=== PATIENT | male | born 1980 | race African-American/Black ===

== ENCOUNTER 2016-09-11 10:51 | Inpatient (IN) | payer OTHER ==
[2016-09-11 11:42] VITALS: BMI 24.0
--- NOTE | 2016-09-11 13:32 | HP ---
CIWA Score - CIWA Score Nausea/Vomitin Muscle Tremors: 3 Anxiety: 3 Agitation: 2 Paroxysmal Sweats: 1-Minimal Palms Moist Orientation: 0-Oriented Tacttile Disturbances: 2-Mild Itch/Numbness/Burn Auditory Disturbances: 2-Mild Harshness/Frighten Visual Disturbances: 2-Mild Sensitivity Headache: 2-Mild CIWA-Ar Total Score: 20 Admission ROS BHS - HPI Chief Complaint: i need help to stop drinking alcohol Allergies/Adverse Reactions: Allergies Allergy/AdvReac Type Severity Reaction Status Date / Time Sulfa (Sulfonamide Allergy Intermediate Verified 07/11/15 14:37 Antibiotics) sulfamethoxazole Allergy Intermediate Verified 07/11/15 14:37 [From Bactrim] trimethoprim [From Bactrim] Allergy Verified 07/11/15 14:34 aspirin AdvReac Verified 09/11/16 13:36 red wine, G6PD deficient AdvReac Uncoded 02/03/15 19:06 History of Present Illness: this 36 years old male with alcohol dependence,withdrawal symptom,last rehab 06/14 to 07/30/15 several admissions in detox.last 2014 psoriasis longest period of sobriety 2 years Exam Limitations: No Limitations - Ebola screening Have you traveled outside of the country in the last 21 days: No Have you had contact with anyone from an Ebola affected area: No Have you been sick,other than usual withdrawal symptoms: No Do you have a fever: No - Review of Systems Constitutional: Loss of Appetite, Malaise, Night Sweats, Changes in sleep, Weakness EENT: reports: Nose Congestion Respiratory: reports: No Symptoms reported Cardiac: reports: No Symptoms Reported GI: reports: Diarrhea, Vomiting, Abdominal cramping : reports: No Symptoms Reported Musculoskeletal: reports: Muscle Pain Integumentary: reports: Dryness Neuro: reports: Headache, Tremors Endocrine: reports: No Symptoms Reported Hematology: reports: No Symptoms Reported, Other (g6pd deficiency) Psychiatric: reports: Judgement Intact, Mood/Affect Appropiate, Orientated x3 ( paranoid chizophrenia,ptsd) Patient History - Patient Medical History Hx Anemia: Yes (G6P defficiency) Hx Asthma: No Hx Chronic Obstructive Pulmonary Disease (COPD): No Hx Cancer: No Hx Cardiac Disorders: No Hx Congestive Heart Failure: No Hx Hypertension: No Hx Hypercholesterolemia: No Hx Pacemaker: No HX Cerebrovascular Accident: No Hx Seizures: No Hx Dementia: No Hx Diabetes: No Hx Gastrointestinal Disorders: No Hx Liver Disease: No Hx Genitourinary Disorders: No Hx Sexually Transmitted Disorders: No Hx Renal Disease (ESRD): No Hx Thyroid Disease: No Hx Human Immunodeficiency Virus (HIV): No (NEGATIVE HX last 07/16) Hx Hepatitis C: No Hx Depression: Yes Hx Suicide Attempt: No Hx Bipolar Disorder: No Hx Schizophrenia: Yes Other Medical History: no suicidal,no homicidal - Patient Surgical History Past Surgical History: Yes Hx Neurologic Surgery: No Hx Cataract Extraction: No Hx Cardiac Surgery: No Hx Lung Surgery: No Hx Breast Surgery: No Hx Breast Biopsy: No Hx Abdominal Surgery: No Hx Appendectomy: No Hx Cholecystectomy: No Hx Genitourinary Surgery: No Hx Section: No Hx Orthopedic Surgery: No Other Surgical History: rectal abscess incised and drained Anesthesia Reaction: No - PPD History Previous Implant?: Yes Documented Results: Negative w/o proof Date: 07/13/15 Results: 0 mm PPD to be Administered?: Yes - Smoking Cessation Smoking history: Never smoked Have you smoked in the past 12 months: No Hx Chewing Tobacco Use: No - Substance & Tx. History Hx Alcohol Use: Yes Hx Substance Use: No Substance Use Type: Alcohol Hx Substance Use Treatment: Yes (2014 ) - Substances Abused Alcohol Route: Oral Frequency: Daily Amount used: 1/2 pint vodka/ 2 12 oz beers Age of first use: 21 Date of Last Use: 09/10/16 Marijuana/Hashish Route: Smoking Frequency: Daily Amount used: $10 Age of first use: 17 Date of Last Use: 09/10/16 Family Disease History - Family Disease History Family Disease History: Other: Father (chronic alcoholic), Mother (HTN) Admission Physical Exam BHS - Vital Signs Vital Signs: Vital Signs - 24 hr 09/11/16 11:41 Temperature 97.2 F L Pulse Rate 59 L Respiratory 18 Rate Blood Pressure 134/76 - Physical General Appearance: Yes: Moderate Distress, Tremorous, Irritable, Sweating, Anxious HEENTM: Yes: Hearing grossly Normal, Normal ENT Inspection, KHALIF, Nasal Congestion Respiratory: Yes: Lungs Clear, Normal Breath Sounds, No Respiratory Distress Neck: Yes: Within Normal Limits, Supple, Trachea in good position Breast: Yes: Within Normal Limits Cardiology: Yes: Within Normal Limits, Regular Rhythm, Regular Rate, S1, S2 Abdominal: Yes: Within Normal Limits, Normal Bowel Sounds, Non Tender, Flat, Soft Genitourinary: Yes: Within Normal Limits Back: Yes: Within Normal Limits, Normal Inspection, Muscle Spasm Musculoskeletal: Yes: full range of Motion, Back pain, Muscle Pain Extremities: Yes: Within Normal Limits, Normal Range of Motion, Non-Tender, Tremors Neurological: Yes: Within Normal Limits, gravity 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 supervisor II-XII NML intact, Fully Oriented, Alert, Motor Strength 5/5 Integumentary: Yes: Dry Lymphatic: Yes: Within Normal Limits - Diagnostic (1) Psoriasis Status: Chronic (2) Schizophrenia Status: Chronic Qualifiers: Schizophrenia type: paranoid schizophrenia Qualified Code(s): F20.0 - Paranoid schizophrenia (3) Alcohol dependence with uncomplicated withdrawal Status: Acute (4) Marijuana dependence Status: Acute (5) G6PD deficiency Status: Chronic (6) Syncope Status: Acute (7) Post traumatic stress disorder (PTSD) Status: Acute Cleared for Admission [facility] - Detox or Rehab [facility] Level of Care: Medically Managed Detox Regimen/Protocol: Librium [facility] Breath Alcohol Content Breath Alcohol Content: 0 Urine Drug Screen - Results Drug Screen Negative: No Urine Drug Screen Results: THC-Marijuana
[2016-09-11] MEDS ORDERED: MAGNESIUM HYDROX 2400MG/30ML ORAL SUSPENSION 30 ML CUP PO PRN (13:48)
[2016-09-11] MEDS ORDERED: ACETAMINOPHEN 325 MG TABLET (FP) PO PRN (13:48)
[2016-09-11] MEDS ORDERED: chlordiazePOXIDE HCL 25 MG CAPSULE PO PRN (13:48)
[2016-09-11] MEDS ORDERED: MAG HYDROX/AL HYDROX/SIMETH 30 ML UNIT-DOSE CUP PO PRN (13:48)
[2016-09-11] MEDS ORDERED: LOPERAMIDE HCL 2 MG CAPSULE PO PRN (13:48)
[2016-09-11] MEDS ORDERED: P-EPHED 60MG/TRIPROLIDI 2.5MG TABLET PO PRN (13:48)
[2016-09-11] MEDS ORDERED: MAGNESIUM CITRATE 300 ML BOTTLE PO PRN (13:48)
[2016-09-11] MEDS ORDERED: IBUPROFEN 400 MG TABLET (FP) PO PRN (13:48)
[2016-09-11] MEDS ORDERED: diphenhydrAMINE HCL 50 MG CAPSULE PO PRN (13:48)
[2016-09-11] MEDS ORDERED: guaiFENesin/D-METHORPHAN HB 10 ML UNIT-DOSE CUPS PO PRN (13:48)
[2016-09-11] MEDS ORDERED: hydrOXYzine PAMOATE 50 MG CAPSULE (FP) PO PRN (13:56)
[2016-09-11] MEDS ORDERED: chlordiazePOXIDE HCL 25 MG CAPSULE PO ONE (14:33)
--- NOTE | 2016-09-11 15:58 | CONSULT ---
[facility] Psychiatric Consult - Data Date of interview: 09/11/16 Admission source: [facility] Identifying data: Readmission to [facility] for this 36 y/o AA male seeking detox treatment for alcohol and marijuana dependence.Patient is single,a father of one,domiciled,unemployed and supported on SSI benefits. Substance Abuse History: - Smoking Cessation. Smoking history: Never smoked. Have you smoked in the past 12 months: No. Hx Chewing Tobacco Use: No. - Substance & Tx. History. Hx Alcohol Use: Yes. Hx Substance Use: No. Substance Use Type: Alcohol. Hx Substance Use Treatment: Yes (2014 ) Medical History: Anemia (G6PD deficiency) and psoriasis. Psychiatric History: No history of psychiatric hospitalizations.Diagnosed with Schizophrenia,paranoid type and PTSD.Onset of mental illness dates back to adolescence.Treatment is sporadic due to chronic non-adherence to OPD care.Prescribed risperdal 1 mg/hs + benadryl 50 mg/hs as per self-report.Mr Stack indicates that he has an appointment for intake (October) at one of the [facility] clinics " in the [facility] ".For the past few years,the patient had developed a preference for emergency room settings that he uses as an alternate source of scripts.No reported history of suicide attempts. Physical/Sexual Abuse/Trauma History: Patient denies. Additional Comment: Urine Drug Screen Results: THC-Marijuana.Noted. Mental Status Exam - Mental Status Exam Alert and Oriented to: Time, Place, Person Cognitive Function: Good Patient Appearance: Well Groomed (tattoos on neck) Mood: Hopeful, Euthymic Affect: Appropriate, Normal Range Patient Behavior: Fatigued, Appropriate, Cooperative Speech Pattern: Clear Voice Loudness: Normal Thought Process: Goal Oriented Thought Disorder: Not Present Hallucinations: Denies Suicidal Ideation: Denies Homicidal Ideation: Denies Insight/Judgement: Poor (limited) Sleep: Fair Appetite: Good Muscle strength/Tone: Normal Gait/Station: Normal Psychiatric Findings - Problem List ([place] 1, 2,3) (1) Alcohol dependence with uncomplicated withdrawal Current Visit: Yes Status: Acute (2) Marijuana dependence Current Visit: Yes Status: Acute (3) Schizophrenia Current Visit: Yes Status: Chronic Qualifiers: Schizophrenia type: paranoid schizophrenia Qualified Code(s): F20.0 - Paranoid schizophrenia (4) G6PD deficiency Current Visit: Yes Status: Chronic (5) Psoriasis Current Visit: Yes Status: Chronic (6) Onychomycosis Current Visit: Yes Status: Chronic - Initial Treatment Plan Initial Treatment Plan: Psychoeducation.Detoxification in progress.Medications : risperdal 1 mg po hs + benadryl 50 mg po hs.Side effects/benefits discussed with the patient.Made aware of the risk of abnormal involuntary movements,EPS ( akathisia,dystonias,dyskinesias),neurolepic malignant syndrome,endocrine issues (galactorrhea,gynecomastia,decrease libido,sexual impotence) that can occur with utilization of risperdal.Patient reports good tolerability to these two drugs and he agrees to follow this careplan.Observation.
[2016-09-11] MEDS: chlordiazePOXIDE HCL 25 MG CAPSULE PO SCH ×2 (17:50→22:46)
[2016-09-11 18:36] LABS: URINE APPEARANCE CLEAR; URINE BILIRUBIN NEGATIVE (NEGATIVE); URINE BLOOD NEGATIVE (NEGATIVE); URINE COLOR STRAW; URINE GLUCOSE (UA) NEGATIVE (NEGATIVE); URINE KETONE NEGATIVE (NEGATIVE); URINE LEUK ESTERASE NEGATIVE (NEGATIVE); URINE NITRITE NEGATIVE (NEGATIVE); URINE PROTEIN NEGATIVE (NEGATIVE); URINE UROBILINOGEN NEGATIVE E.U./dl (0.2-1.0)
[2016-09-11] MEDS: THIAMINE HCL 100 MG TABLET (FP) PO SCH (22:45)
[2016-09-11] MEDS: risperiDONE 1 MG TABLET (FP) PO SCH (22:46)
[2016-09-11] MEDS: diphenhydrAMINE HCL 25 MG CAPSULE (FP) PO SCH (22:47)
[2016-09-12] MEDS: chlordiazePOXIDE HCL 25 MG CAPSULE PO SCH ×4 (05:44→22:39)
[2016-09-12] MEDS ORDERED: TRIMETHOBENZAMIDE HCL 200MG/2ML INJ IM PRN (09:20)
[2016-09-12 10:02] LABS: MCH 33.2 pg (25.7-33.7); MCHC 33.3 g/dl (32.0-35.9); MEAN CELL VOLUME 99.9 fl (80-96); MEAN PLT VOLUME 11.2 fl (7.5-11.1); PLATELET COUNT 170 K/MM3 (134-434); RDW 13.2 % (11.9-15.9); WHITE BLOOD COUNT 6.8 K/mm3 (4.0-10.0)
[2016-09-12 10:37] LABS: ALBUMIN 4.3 g/dl (3.4-5.0); ALK PHOS 68 U/L (45-117); ANION GAP 9 (8-16); CALCIUM 9.1 mg/dL (8.5-10.1); CO2 23 mmol/L (21-32); GLUCOSE,RANDOM 88 mg/dL (74-106); SGOT/AST 18 U/L (15-37); SGPT/ALT 36 U/L (12-78); TOT PROT 6.7 g/dl (6.4-8.2)
--- NOTE | 2016-09-12 10:50 | PN ---
[facility] CIWA - CIWA Score Nausea/Vomitin Muscle Tremors: 4-Moderate,w/Arms Extend Anxiety: 4-Mod. Anxious/Guarded Agitation: 4-Moderately Restless Paroxysmal Sweats: 1-Minimal Palms Moist Orientation: 0-Oriented Tacttile Disturbances: 3-Moderate Itch/Numb/Burn Auditory Disturbances: 0-None Visual Disturbances: 0-None Headache: 0-None Present CIWA-Ar Total Score: 22 BHS Progress Note (SOAP) Subjective: ANXIETY,SWEATS/CHILLS,TREMORS,IRRITABILITY,NAUSEA/VOMITING. Objective: 09/12/16 11:44 Vital Signs Temperature 96.3 F L 09/12/16 10:04 Pulse Rate 62 09/12/16 10:04 Respiratory Rate 18 09/12/16 10:04 Blood Pressure 123/83 09/12/16 10:04 O2 Sat by Pulse Oximetry (%) Laboratory Last Values WBC 6.8 K/mm3 (4.0-10.0) 09/12/16 06:00 RBC 3.88 M/mm3 (4.00-5.60) L 09/12/16 06:00 Hgb 12.9 GM/dL (11.7-16.9) 09/12/16 06:00 Hct 38.8 % (35.4-49) 09/12/16 06:00 MCV 99.9 fl (80-96) H 09/12/16 06:00 MCHC 33.3 g/dl (32.0-35.9) 09/12/16 06:00 RDW 13.2 % (11.9-15.9) 09/12/16 06:00 Plt Count 170 K/MM3 (134-434) 09/12/16 06:00 MPV 11.2 fl (7.5-11.1) H 09/12/16 06:00 Sodium 140 mmol/L (136-145) 09/12/16 06:00 Potassium 4.2 mmol/L (3.5-5.1) 09/12/16 06:00 Chloride 108 mmol/L (98-107) H 09/12/16 06:00 Carbon Dioxide 23 mmol/L (21-32) 09/12/16 06:00 Anion Gap 9 (8-16) 09/12/16 06:00 BUN 21 mg/dL (7-18) H D 09/12/16 06:00 Creatinine 1.0 mg/dL (0.7-1.3) 09/12/16 06:00 Creat Clearance w eGFR > 60 (>60) 09/12/16 06:00 Random Glucose 88 mg/dL (74-106) D 09/12/16 06:00 Calcium 9.1 mg/dL (8.5-10.1) 09/12/16 06:00 Total Bilirubin 1.0 mg/dL (0.2-1.0) 09/12/16 06:00 AST 18 U/L (15-37) 09/12/16 06:00 ALT 36 U/L (12-78) D 09/12/16 06:00 Alkaline Phosphatase 68 U/L (45-117) 09/12/16 06:00 Total Protein 6.7 g/dl (6.4-8.2) 09/12/16 06:00 Albumin 4.3 g/dl (3.4-5.0) 09/12/16 06:00 Urine Color Straw 09/11/16 17:45 Urine Appearance Clear 09/11/16 17:45 Urine pH 5.0 (5.0-8.0) 09/11/16 17:45 Ur Specific [place] 1.016 (1.001-1.035) 09/11/16 17:45 Urine Protein Negative (NEGATIVE) 09/11/16 17:45 Urine Glucose (UA) Negative (NEGATIVE) 09/11/16 17:45 Urine Ketones Negative (NEGATIVE) 09/11/16 17:45 Urine Blood Negative (NEGATIVE) 09/11/16 17:45 Urine Nitrite Negative (NEGATIVE) 09/11/16 17:45 Urine Bilirubin Negative (NEGATIVE) 09/11/16 17:45 Urine Urobilinogen Negative E.U./dl (0.2-1.0) 09/11/16 17:45 Ur Leukocyte Esterase Negative (NEGATIVE) 09/11/16 17:45 Hepatitis C Antibody 0.2 s/co ratio (0.0-0.9) 09/11/16 14:15 Assessment: 09/12/16 11:44 WITHDRAWAL SX Plan: CONTINUE DETOX
[2016-09-12] MEDS: PRENATAL VITAMINS W/ FOLIC ACID TABLET (FP) PO SCH (11:00)
[2016-09-12] MEDS: ONDANSETRON *ODT* 4 MG TABLET SL PRN (11:52)
--- NOTE | 2016-09-12 15:31 | EKG ---
Test Reason : Blood Pressure : / mmHG Vent. Rate : 068 BPM Atrial Rate : 068 BPM P-R Int : 170 ms QRS Dur : 086 ms QT Int : 400 ms P-R-T Axes : 050 018 018 degrees QTc Int : 425 ms NORMAL SINUS RHYTHM WITH SINUS ARRHYTHMIA NORMAL ECG NO PREVIOUS ECGS AVAILABLE Confirmed by IVONNE CLAYTON MD ([id number]) on 09/12/2016 3:31:15 PM Referred By: Confirmed By:IVONNE CLAYTON MD
--- NOTE | 2016-09-12 19:08 | PN ---
S Progress Note Note: received nurse call, patient reports less shaking, refuses ligrium 25 mg x 1, continue detox
[2016-09-12] MEDS: THIAMINE HCL 100 MG TABLET (FP) PO SCH (22:38)
[2016-09-12] MEDS: diphenhydrAMINE HCL 25 MG CAPSULE (FP) PO SCH (22:39)
[2016-09-12] MEDS: risperiDONE 1 MG TABLET (FP) PO SCH (22:39)
[2016-09-13] MEDS: chlordiazePOXIDE HCL 25 MG CAPSULE PO SCH ×2 (05:13→10:39)
[2016-09-13] MEDS: ONDANSETRON *ODT* 4 MG TABLET SL PRN (09:02)
[2016-09-13 09:06] LABS: HIV 1 & 2 AB NEGATIVE; HIV 1 AGp24 NEGATIVE
[2016-09-13] MEDS: PRENATAL VITAMINS W/ FOLIC ACID TABLET (FP) PO SCH (10:38)
[2016-09-13] MEDS ORDERED: COLLOIDAL OATMEAL 1 BAR EACH TP ONE (12:05)
[2016-09-13] MEDS: SELENIUM SULFIDE 2.5% LOTION 4 OZ. TP SCH (13:48)
[2016-09-13] MEDS: chlordiazePOXIDE 5 MG CAPSULE PO SCH ×2 (17:31→22:42)
[2016-09-13] MEDS: risperiDONE 1 MG TABLET (FP) PO SCH (22:42)
[2016-09-13] MEDS: diphenhydrAMINE HCL 25 MG CAPSULE (FP) PO SCH (22:42)
[2016-09-13] MEDS: THIAMINE HCL 100 MG TABLET (FP) PO SCH (22:42)
[2016-09-14] MEDS: chlordiazePOXIDE 5 MG CAPSULE PO SCH ×2 (05:44→10:45)
[2016-09-14] MEDS: ONDANSETRON *ODT* 4 MG TABLET SL PRN (05:45)
[2016-09-14] MEDS: MENTHOL/PHENOL 1 EACH UD MM PRN ×4 (08:37→22:57)
[2016-09-14] MEDS: SELENIUM SULFIDE 2.5% LOTION 4 OZ. TP SCH (10:45)
[2016-09-14] MEDS: PRENATAL VITAMINS W/ FOLIC ACID TABLET (FP) PO SCH (10:45)
--- NOTE | 2016-09-14 16:33 | PN ---
S CIWA - CIWA Score Nausea/Vomitin Muscle Tremors: 4-Moderate,w/Arms Extend Anxiety: 2 Agitation: 1-Slight > Activity Paroxysmal Sweats: 3 Orientation: 2-Disoriented Date<2 days Tacttile Disturbances: 2-Mild Itch/Numbness/Burn Auditory Disturbances: 0-None Visual Disturbances: 0-None Headache: 0-None Present CIWA-Ar Total Score: 19 BHS Progress Note (SOAP) Subjective: Sweating, Vomiting, diarrhea. Objective: PT. A & O X 2 (DISORIENTED ABOUT DAY / DATE). PT. OBSERVED AMBULATING ON UNIT. 09/14/16 16:31 Vital Signs Temperature 97.3 F L 09/14/16 13:34 Pulse Rate 77 09/14/16 13:34 Respiratory Rate 18 09/14/16 13:34 Blood Pressure 119/83 09/14/16 13:34 O2 Sat by Pulse Oximetry (%) Laboratory Last Values WBC 6.8 K/mm3 (4.0-10.0) 09/12/16 06:00 RBC 3.88 M/mm3 (4.00-5.60) L 09/12/16 06:00 Hgb 12.9 GM/dL (11.7-16.9) 09/12/16 06:00 Hct 38.8 % (35.4-49) 09/12/16 06:00 MCV 99.9 fl (80-96) H 09/12/16 06:00 MCHC 33.3 g/dl (32.0-35.9) 09/12/16 06:00 RDW 13.2 % (11.9-15.9) 09/12/16 06:00 Plt Count 170 K/MM3 (134-434) 09/12/16 06:00 MPV 11.2 fl (7.5-11.1) H 09/12/16 06:00 Sodium 140 mmol/L (136-145) 09/12/16 06:00 Potassium 4.2 mmol/L (3.5-5.1) 09/12/16 06:00 Chloride 108 mmol/L (98-107) H 09/12/16 06:00 Carbon Dioxide 23 mmol/L (21-32) 09/12/16 06:00 Anion Gap 9 (8-16) 09/12/16 06:00 BUN 21 mg/dL (7-18) H D 09/12/16 06:00 Creatinine 1.0 mg/dL (0.7-1.3) 09/12/16 06:00 Creat Clearance w eGFR > 60 (>60) 09/12/16 06:00 Random Glucose 88 mg/dL (74-106) D 09/12/16 06:00 Calcium 9.1 mg/dL (8.5-10.1) 09/12/16 06:00 Total Bilirubin 1.0 mg/dL (0.2-1.0) 09/12/16 06:00 AST 18 U/L (15-37) 09/12/16 06:00 ALT 36 U/L (12-78) D 09/12/16 06:00 Alkaline Phosphatase 68 U/L (45-117) 09/12/16 06:00 Total Protein 6.7 g/dl (6.4-8.2) 09/12/16 06:00 Albumin 4.3 g/dl (3.4-5.0) 09/12/16 06:00 Urine Color Straw 09/11/16 17:45 Urine Appearance Clear 09/11/16 17:45 Urine pH 5.0 (5.0-8.0) 09/11/16 17:45 Ur Specific [place] 1.016 (1.001-1.035) 09/11/16 17:45 Urine Protein Negative (NEGATIVE) 09/11/16 17:45 Urine Glucose (UA) Negative (NEGATIVE) 09/11/16 17:45 Urine Ketones Negative (NEGATIVE) 09/11/16 17:45 Urine Blood Negative (NEGATIVE) 09/11/16 17:45 Urine Nitrite Negative (NEGATIVE) 09/11/16 17:45 Urine Bilirubin Negative (NEGATIVE) 09/11/16 17:45 Urine Urobilinogen Negative E.U./dl (0.2-1.0) 09/11/16 17:45 Ur Leukocyte Esterase Negative (NEGATIVE) 09/11/16 17:45 RPR Titer Nonreactive (NONREACTIVE) 09/12/16 06:00 Hepatitis C Antibody 0.2 s/co ratio (0.0-0.9) 09/11/16 14:15 HIV 1&2 Antibody Screen Negative 09/11/16 14:15 HIV P24 Antigen Negative 09/11/16 14:15 LABS NOTED. Assessment: 09/14/16 16:32 WITHDRAWAL SYMPTOMS. Plan: CONTINUE DETOX. PRN ZOFRAN FOR VOMITING. PRN IMMODIUM FOR FOR DIARRHEA. ADVISED PATIENT TO FOLLOW-UP WITH DEVELOPMENT MGR / REHAB MEDICAL PROVIDER AFTER DISCHARGE FROM DETOX FOR GENERAL MEDICAL ASSESSMENT AND FOR ANY ABNORMAL ADMISSION LAB VALUES.
[2016-09-14] MEDS: chlordiazePOXIDE HCL 10 MG CAPSULE PO SCH ×2 (17:58→22:55)
[2016-09-14] MEDS: diphenhydrAMINE HCL 25 MG CAPSULE (FP) PO SCH (22:55)
[2016-09-14] MEDS: risperiDONE 1 MG TABLET (FP) PO SCH (22:55)
[2016-09-14] MEDS: THIAMINE HCL 100 MG TABLET (FP) PO SCH (22:55)
[2016-09-15] MEDS: MENTHOL/PHENOL 1 EACH UD MM PRN (05:40)
[2016-09-15] MEDS: chlordiazePOXIDE HCL 10 MG CAPSULE PO SCH ×2 (05:40→12:56)
[2016-09-15 06:46] VITALS: BP 99/63; PULSE 71; TEMP 96.8
--- NOTE | 2016-09-15 10:34 | DS ---
[facility] Detox Discharge Summary Admission Date: 09/11/16 Discharge Date: 09/15/16 - History Present History: Alcohol Dependence Pertinent Past History: Anemia - Physical Exam Results Vital Signs: Vital Signs Temperature 96.8 F L 09/15/16 06:45 Pulse Rate 71 09/15/16 06:45 Respiratory Rate 18 09/15/16 06:45 Blood Pressure 99/63 09/15/16 06:45 O2 Sat by Pulse Oximetry (%) Pertinent Admission Physical Exam Findings: Withdrawal symptoms Laboratory Tests 09/11/16 09/11/16 09/11/16 14:15 14:15 17:45 WBC RBC Hgb Hct MCV MCHC RDW Plt Count MPV Sodium Potassium Chloride Carbon Dioxide Anion Gap BUN Creatinine Creat Clearance w eGFR Random Glucose Calcium Total Bilirubin AST ALT Alkaline Phosphatase Total Protein Albumin Urine Color Straw Urine Appearance Clear Urine pH 5.0 Ur Specific [place] 1.016 Urine Protein Negative Urine Glucose (UA) Negative Urine Ketones Negative Urine Blood Negative Urine Nitrite Negative Urine Bilirubin Negative Urine Urobilinogen Negative Ur Leukocyte Esterase Negative RPR Titer Hepatitis C Antibody 0.2 HIV 1&2 Antibody Screen Negative HIV P24 Antigen Negative 09/12/16 09/12/16 09/12/16 06:00 06:00 06:00 WBC 6.8 RBC 3.88 L Hgb 12.9 Hct 38.8 MCV 99.9 H MCHC 33.3 RDW 13.2 Plt Count 170 MPV 11.2 H Sodium 140 Potassium 4.2 Chloride 108 H Carbon Dioxide 23 Anion Gap 9 BUN 21 H D Creatinine 1.0 Creat Clearance w eGFR > 60 Random Glucose 88 D Calcium 9.1 Total Bilirubin 1.0 AST 18 ALT 36 D Alkaline Phosphatase 68 Total Protein 6.7 Albumin 4.3 Urine Color Urine Appearance Urine pH Ur Specific [place] Urine Protein Urine Glucose (UA) Urine Ketones Urine Blood Urine Nitrite Urine Bilirubin Urine Urobilinogen Ur Leukocyte Esterase RPR Titer Nonreactive Hepatitis C Antibody HIV 1&2 Antibody Screen HIV P24 Antigen Labs noted - Treatment Hospital Course: Detox Protocol Followed, Detoxed Safely, Responded well, Discharged Condition Good - Medication Discharge Medications: Ambulatory Orders Risperidone [Risperdal -] 2 mg PO HS #30 tablet 02/17/15 Tacrolimus 0.03% Topical Oint [Protopic (Nf)] 30 gm NR DAILY 09/11/16 Diphenhydramine [Benadryl -] 50 mg NR HS #30 capsule 09/14/16 Risperidone [Risperdal] 2 mg PO DAILY #30 tablet 09/14/16 - Diagnosis (1) Alcohol dependence with uncomplicated withdrawal Current Visit: Yes Status: Acute (2) G6PD deficiency Current Visit: Yes Status: Chronic (3) Schizophrenia Current Visit: Yes Status: Chronic Qualifiers: Schizophrenia type: paranoid schizophrenia Qualified Code(s): F20.0 - Paranoid schizophrenia (4) Depression Current Visit: Yes Status: Chronic - AMA Did Patient Leave Against Medical Advice: No
[2016-09-15] MEDS: PRENATAL VITAMINS W/ FOLIC ACID TABLET (FP) PO SCH (10:58)
[2016-09-15] MEDS: SELENIUM SULFIDE 2.5% LOTION 4 OZ. TP SCH (10:58)
== END 2016-09-15 11:13 | disposition home or self-care (01) | DRG 775 ==
LOC: YASAS 10:51 → Y3N 14:23
PROVIDERS: ADMIT Internal Medicine; ATTEND Internal Medicine
PROC: HZ2ZZZZ Detoxification Services for Substance Abuse Treatment (ICD-10-PCS; principal; 2016-09-11)
DX: F10.230 Alcohol dependence with withdrawal, uncomplicated (principal); F12.20 Cannabis dependence, uncomplicated; F20.0 Paranoid schizophrenia; F32.9 Major depressive disorder, single episode, unspecified; F43.10 Post-traumatic stress disorder, unspecified; D55.0 Anemia due to glucose-6-phosphate dehydrogenase [G6PD] deficiency; L40.9 Psoriasis, unspecified
CPT/HCPCS: 36415; 80053; 81003; 85027; 86593; 87389; 93005; 93010; J2794